=== PATIENT | female | born 1985 | race Caucasian/White ===

== ENCOUNTER 2021-09-15 08:30 | Outpatient (CLI) | payer OTHER ==
--- NOTE | 2021-09-15 12:06 | MRI Report ---
PROCEDURE: Lumbar Spine W/O INDICATIONS: NERVE ROOT PLEXUS DISORDER TECHNIQUE: Noncontrast sagittal T1 spin echo and T2 fast echo, sagittal STIR, axial T1 and T2 fast spin echo thr ough the lumbar spine. In cases with scoliosis, additional coronal T2 fast spin echo may be performe d. COMPARISON: None. FINDINGS: Image quality: Excellent. Alignment and Curvature: There is normal bony alignment. Bone Marrow: Modic type II reactive endplate changes noted adjacent to the L3-L4, L4-L5 and L5-S1 dis cs. No acute vertebral body compression fractures. Spinal Cord: Conus medullaris terminates at the L1-2 disc level. Visualized cord demonstrates abram l signal and size. Paraspinous Soft Tissues: No paravertebral masses. T12-L1: Normal in appearance. L1-L2: Normal in appearance. L2-L3: Normal in appearance. L3-L4: Loss of disc signal and mild loss of disc height. Mild, diffuse disc bulge. Small central di sc extrusion. Extruded disc material extends inferiorly along the posterior margin of the L4 vertebra l body to a particular level. Mild bilateral facet hypertrophy. Mild narrowing of the central canal. Mild bilateral neural foraminal narrowing. No neural compression. L4-L5: Loss of disc signal and mild loss of disc height. Mild, diffuse disc bulge. Mild bilateral f acet hypertrophy. Mild narrowing of the central canal. Mild bilateral neural foraminal narrowing. No neural compression. L5-S1: Loss of disc signal and mild loss of disc height. Mild, diffuse disc bulge. Small left centr al disc extrusion. Extruded disc material extends superiorly lateral to the L5 vertebral body level. The extruded disc material is left S1 nerve root. Mild narrowing of the central canal. Mild bilateral neural foraminal narrowing. IMPRESSION: 1. Multilevel degenerative disease. 2. Multilevel facet atrophy. 3. No severe central canal narrowing. 4. No severe neural foraminal narrowing. 5. Small left central L5-S1 disc extrusion. Extruded disc material compresses the traversing left S1 nerve root. Please correlate with clinical data. 6. Small central L3-L4 disc extrusion. Extruded disc material does not impinge upon the traversing ne rve roots of cauda equina. Reviewed by: Beata Modi MD, PhD on 09/15/2021 12:05 PM PDT Approved by: Beata Modi MD, PhD on 09/15/2021 12:05 PM PDT Station ID: [id number]
== END 2021-09-15 08:31 | disposition home or self-care (01) ==
LOC: DI 08:30
PROVIDERS: ATTEND Nurse Practitioner Family
DX: M51.26 Other intervertebral disc displacement, lumbar region (principal); M51.27 Other intervertebral disc displacement, lumbosacral region; M47.816 Spondylosis without myelopathy or radiculopathy, lumbar region; M51.36 Other intervertebral disc degeneration, lumbar region; M48.061 Spinal stenosis, lumbar region without neurogenic claudication; M51.37 Other intervertebral disc degeneration, lumbosacral region; M48.07 Spinal stenosis, lumbosacral region